=== PATIENT | female | born 1975 | race Caucasian/White ===

== ENCOUNTER 2020-12-07 11:58 | Emergency (ER) | payer OTHER, MEDICAID, SELFPAY ==
[2020-12-07 12:08] VITALS: BP 127/86; PULSE 84; RESP 16; TEMP 36.7; O2SAT 99; BMI 20.6
[2020-12-07 12:23] VITALS: PULSE 72
--- NOTE | 2020-12-07 12:25 | PC.NURSE ---
Noted skin on both hands and feet to be very dry, cracked. 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
--- NOTE | 2020-12-07 12:27 | ED.EXTPRO ---
HPI - Extremity Problem General Chief complaint: Extremity Problem,Nontraumatic Stated complaint: Swelling/Pain In Hands And Feet Time Seen by Provider: 12/07/20 12:16 Source: patient Mode of arrival: Ambulatory Limitations: no limitations History of Present Illness HPI Narrative: Patient is a 45-year-old female with no known medical history presenting today with bilateral hand swelling and feet swelling. She says that she works 2 jobs and has for number of years. 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 She says yesterday she noticed swelling in both hands and feet and again this morning as well. No fever or chills. Fact yesterday she took ibuprofen, today her feet are better but hands are still swollen she denies any weakness. She called to make an appointment with her doctor who instructed her to come to the ED MD Complaint: extremity swelling Related Data Home Medications Medication Instructions Recorded Confirmed No Known Home Medications 04/27/20 12/07/20 Allergies Allergy/AdvReac Type Severity Reaction Status Date / Time aloe vera Allergy Severe Hives Verified 12/07/20 12:14 codeine Allergy Severe Hives Verified 12/07/20 12:14 adhesive tape Allergy Intermediate Blister Verified 12/07/20 12:14 Review of Systems Review of Systems ROS Unobtainable: All systems reviewed & are unremarkable except as noted in HPI and below Constitutional Constitutional: Denies chills, Denies fever(s), Denies lethargy and Denies weakness ENT Ears, Nose, Mouth, and Throat: Denies neck pain Cardiovascular Cardiovascular: Denies chest pain, Denies irregular heart rhythm, Denies lightheadedness, Denies palpitations, Denies dyspnea, Denies dyspnea on exertion and Denies orthopnea Respiratory Respiratory: Denies cough, Denies dyspnea, Denies dyspnea on exertion and Denies wheezing Musculoskeletal Musculoskeletal: Reports as per HPI, Denies myalgias, Denies deformity, Reports arthralgias, Reports joint swelling, Denies neck pain and Denies numbness Integumentary/Breasts Skin/Breast: Denies pruritus, Denies erythema, Denies rash and Denies wounds Neurologic Neurologic: Denies numbness and Denies weakness Endocrine Endocrine: Denies palpitations Allergic/Immunologic Allergic/Immunologic: Denies wheezing Patient History Social History Smoking Status: Current every day smoker Smoking Status: Current every day smoker alcohol intake frequency: 0-2 drinks per day Substance Use Type: does not use Exam Initial Vital Signs Initial Vital Signs: Vital Signs Temperature 98.0 F 12/07/20 12:08 Pulse Rate 84 12/07/20 12:08 Respiratory Rate 16 12/07/20 12:08 Blood Pressure 127/86 12/07/20 12:08 Pulse Oximetry 99 12/07/20 12:08 GENERAL: Well-appearing, well-nourished and in no acute distress. HEENT: Head atraumatic,EOMI, pupils reactive, face symmetric, moist mucous membrane CARDIOVASCULAR: Regular rate and rhythm without murmurs, rubs or gallops. RESPIRATORY: Breath sounds equal bilaterally, no wheezes rales or rhonchi. ABDOMEN: Soft, nontender. Normoactive bowel sounds all 4 quadrants. No guarding or rebound. EXTREMITIES: Normal range of motion, no clubbing or edema. Neurovascularly intact. No significant swelling of feet mild swelling of all joints in hands. Neurovascularly intact. Decreased aspnet developer strength bilaterally due to pain and swelling NEUROLOGICAL: Alert and oriented x4.Normal gait and speech. SKIN: Warm, no laceration, no petechiae, no rashes or lesions. Dryness noted in both hands. Course Orders Ordered: Ketorolac Tromethamine (Ketorolac 60 Mg/2 Ml Vial) 30 mg IM NOW ONE Stop: 12/07/20 12:28 Vital Signs Vital signs: Vital Signs - 8 hr 12/07/20 12:08 12/07/20 12:23 Temperature 98.0 F Pulse Rate 84 Pulse Rate [Bilateral Radial] 72 Pulse Rate [Dorsalis Pedis] 72 Respiratory Rate 16 Blood Pressure 127/86 Pulse Oximetry 99 Discharge Plan Departure Patient Disposition: Home Clinical Impression: Arthritis Instructions: DI for Arthritis Activity Restrictions/Additional Instructions: *You have been diagnosed with arthritis *What to do: Recommend resting, elevate, also recommend good lotion for your hands *Continue to take medications as directed Ibuprofen 600 mg every 6-8 hours if needed for [id number] pain, do not take in till 8:00 p.m. [email or web address] he received a large dose in the ED *Follow up with your primary care provider in 2-3 days *Return to ER if you should have increasing swelling, pain, redness or any new, worsening or concerning symptoms Prescriptions: No Action No Known Home Medications RF: 0
[2020-12-07] MEDS: KETOROLAC 60 MG/2 ML VIAL 30 MG IM (12:59)
[2020-12-07 13:22] VITALS: BP 126/76; PULSE 68; RESP 16; O2SAT 100
== END 2020-12-07 13:22 | disposition home or self-care (01) ==
PROVIDERS: Emergency Provider Emergency Medicine
DX: M19.90 Unspecified osteoarthritis, unspecified site (principal)
CPT/HCPCS: 96372; 99281; 99283; J1885